=== PATIENT | female | born 1995 | race Two or more races ===

== ENCOUNTER 2017-06-03 17:49 | Emergency (ER) | payer MEDICAID ==
[2017-06-03] MEDS ORDERED: ONDANSETRON 4 MG TAB.RAPDIS PO ONE (19:42)
--- NOTE | 2017-06-03 19:44 | ER Document Report ---
ED Medical Screen (RME) - General Chief Complaint: Abdominal Pain Stated Complaint: ABDOMINAL PAIN Time Seen by Provider: 06/03/17 19:42 Notes: Patient is complaining of lower mid abdominal pain and general body aches, including the back and flank regions bilaterally. All of these symptoms have been going on for about 6 days. She has been nauseated but not vomiting, but not eating or drinking much to keep from vomiting. Had one episode of diarrhea. No UTI symptoms. No congestion or cough symptoms. [place] like she had a fever, but did not take her temperature. LMP 8/3, on control pills. No abdominal surgeries. On no regular prescription medications. TRAVEL OUTSIDE OF THE [place] IN LAST 30 DAYS: No - Related Data Allergies/Adverse Reactions: blueberries Adverse Reaction (Uncoded 06/03/17 17:57) Past Medical History - Social History Chew tobacco use (# tins/day): No Frequency of alcohol use: Rare Drug Abuse: None Renal/ Medical History: Denies: Hx Peritoneal Dialysis Past Surgical History: Reports: Hx Orthopedic Surgery - knee - Immunizations Immunizations up to date: Yes Hx Diphtheria, Pertussis, Tetanus Vaccination: Yes Physical Exam - Vital signs Vitals: Temp Pulse Resp BP Pulse Ox 98.4 F 115 H 16 120/90 H 97 06/03/17 17:54 06/03/17 17:54 06/03/17 17:54 06/03/17 17:54 06/03/17 17:54 Course - Vital Signs Vital signs: Temp Pulse Resp BP Pulse Ox 98.4 F 96 16 120/90 H 97 06/03/17 17:54 06/03/17 19:37 06/03/17 19:37 06/03/17 17:54 06/03/17 17:54
[2017-06-03 20:09] LABS: ABSOLUTE LYMPHOCYTES (AUTO) 0.9 10^3/uL (0.5-4.7); ABSOLUTE MONOCYTES (AUTO) 0.4 10^3/uL (0.1-1.4); ABSOLUTE NEUT (AUTO) 4.2 10^3/uL (1.7-8.2); BASOPHILS % (AUTO) 0.4 % (0-2); EOSINOPHILS % (AUTO) 0.1 % (0-6); HEMATOCRIT 44.7 % (36.0-47.0); HEMOGLOBIN 14.5 g/dL (12.0-15.5); HGB HCT DIFFERENCE -1.2; LYMPHOCYTES % (AUTO) 16.7 % (13-45); MEAN CORPUSCULAR HGB CONC 32.4 g/dL (32.0-36.0); MEAN CORPUSCULAR VOLUME 87 fl (80-97); RED BLOOD COUNT 5.17 10^6/uL (3.72-5.28); RED CELL DISTRIBUTION WIDTH 12.8 % (11.5-14.0); SEGMENTED NEUTROPHILS % (AUTO) 75.8 % (42-78); WHITE BLOOD COUNT 5.5 10^3/uL (4.0-10.5)
[2017-06-03 20:29] LABS: ALANINE AMINOTRANSFERASE 25 U/L (9-52); ALKALINE PHOSPHATASE 70 U/L (38-126); ANION GAP 13 (5-19); ASPARTATE AMINO TRANSFERASE 20 U/L (14-36); BILIRUBIN,DIRECT 0.4 mg/dL (0.0-0.4); BILIRUBIN,TOTAL 0.7 mg/dL (0.2-1.3); BLOOD UREA NITROGEN 9 mg/dL (7-20); CALCIUM 10.4 mg/dL (8.4-10.2); CARBON DIOXIDE 25 mmol/L (22-30); CHLORIDE 103 mmol/L (98-107); CREATININE RESULT 0.74 mg/dL (0.52-1.25); GLUCOSE 77 mg/dL (75-110); LIPASE 28.8 U/L (23-300); POTASSIUM 4.2 mmol/L (3.6-5.0); SODIUM 140.6 mmol/L (137-145); TOTAL PROTEIN 8.3 g/dL (6.3-8.2)
[2017-06-03 20:35] LABS: APPEARANCE,URINE CLOUDY; BILIRUBIN,URINE NEGATIVE (NEGATIVE); GLUCOSE, URINE NEGATIVE (NEGATIVE); KETONES,URINE 20 mg/dL (NEGATIVE); LEUKOCYTE ESTERASE,URINE SMALL (NEGATIVE); NITRITE,URINE NEGATIVE (NEGATIVE); PROTEIN,URINE NEGATIVE (NEGATIVE)
--- NOTE | 2017-06-03 22:15 | ER Document Report ---
ED GI/ - General Mode of Arrival: Ambulatory Information source: Patient TRAVEL OUTSIDE OF THE [place] IN LAST 30 DAYS: No <DIAMOND SPENCER - Last Filed: 06/03/17 23:53> <LUISA HOROWITZ - Last Filed: 06/04/17 05:29> - General Chief Complaint: Abdominal Pain Stated Complaint: ABDOMINAL PAIN Time Seen by Provider: 06/03/17 19:42 Notes: Patient is a 22-year-old female presented emergency department for abdominal pain and nausea. Patient states her pain was onset on Wednesday and has been waxing and waning since then. Patient states the pain is uncomfortable and sometimes shooting on the lower right side. Patient states her pain is sometimes exacerbated with walking. Patient states she has also had some nausea and lack of appetite along with one episode of diarrhea on Wednesday. Patient states she has a spell of general malaise and some general body aches. Patient denies any vomiting, dysuria, cough, congestion, chest pain or shortness of breath. Patient's last menstrual period was 06/16/2017. Patient states she has had a history of ovarian cysts and she is currently on control. PCP [facility] (DIAMOND SPENCER) - Related Data Allergies/Adverse Reactions: blueberries Adverse Reaction (Uncoded 06/03/17 17:57) Past Medical History - General Information source: Patient - Social History Smoking Status: Current Every Day Smoker Chew tobacco use (# tins/day): No Frequency of alcohol use: Rare Drug Abuse: None Family History: None Patient has suicidal ideation: No Patient has homicidal ideation: No Renal/ Medical History: Reports: Hx Ovarian Cysts Past Surgical History: Reports: Hx Orthopedic Surgery - knee - Immunizations Immunizations up to date: Yes Hx Diphtheria, Pertussis, Tetanus Vaccination: Yes <DIAMOND SPENCER - Last Filed: 06/03/17 23:53> Review of Systems - Review of Systems Constitutional: See HPI, Malaise EENT: No symptoms reported Cardiovascular: No symptoms reported Respiratory: No symptoms reported Gastrointestinal: See HPI, Abdominal pain, Nausea. denies: Vomiting Genitourinary: No symptoms reported Female Genitourinary: No symptoms reported Musculoskeletal: No symptoms reported Skin: No symptoms reported Hematologic/Lymphatic: No symptoms reported Neurological/Psychological: No symptoms reported -: Yes All other systems reviewed and negative <TJERICADIAMOND - Last Filed: 06/03/17 23:53> Physical Exam - Vital signs Interpretation: Tachycardic <DIAMOND SPENCER - Last Filed: 06/03/17 23:53> <LUISA HOROWITZ - Last Filed: 06/04/17 05:29> - Vital signs Vitals: Temp Pulse Resp BP Pulse Ox 98.4 F 115 H 16 120/90 H 97 06/03/17 17:54 06/03/17 17:54 06/03/17 17:54 06/03/17 17:54 06/03/17 17:54 - Notes Notes: GENERAL: Alert, interacts well. No acute distress. HEAD: Normocephalic, atraumatic. EYES: Appear normal. Pupils equal, round, and reactive to light. ENT: Moist mucus membranes, tongue midline. NECK: Full range of motion. Supple. Trachea midline. LUNGS: Clear to auscultation bilaterally, no wheezes, rales, or rhonchi. No respiratory distress. HEART: Regular rate and rhythm. No murmurs, gallops, or rubs. ABDOMEN: Soft, mild pelvic tenderness with palpation. Non-distended. Normal bowel sounds. EXTREMITIES: Moves all 4 extremities spontaneously. Normal strength. No edema. NEUROLOGICAL: Alert and oriented x3. Normal speech. No focal neurological deficits. GSC 15. PSYCH: Normal affect, normal mood. SKIN: Warm, dry, normal turgor. No rashes or lesions noted. (DIAMOND SPENCER) Course - Laboratory Result Diagrams: 06/03/17 19:56 06/03/17 19:56 <LANEDANISHADIAMOND - Last Filed: 06/03/17 23:53> - Laboratory Result Diagrams: 06/03/17 19:56 06/03/17 19:56 <LUISA HOROWITZ - Last Filed: 06/04/17 05:29> - Re-evaluation Re-evalutation: 06/03/17 Patient is a 22-year-old female who comes in complaining of some abdominal pain and nausea. Patient with right pelvic pain. She is not concerned about STDs. Patient has a history of ovarian cyst. No evidence for torsion at this time. Would work and urine within normal limits. Patient feels better after Zofran. She is instructed to follow-up with her doctor. Of note the patient has had recent sick contacts with similar symptoms. Patient is also around the time where she will be ovulating. Stable for discharge. Return if any worsening or concerning symptoms. Nonsurgical abdomen at this time. (LUISA HOROWITZ) - Vital Signs Vital signs: Temp Pulse Resp BP Pulse Ox 98.5 F 91 16 112/77 97 06/03/17 22:47 06/03/17 22:47 06/03/17 22:47 06/03/17 22:47 06/03/17 17:54 - Laboratory Laboratory results interpreted by me: 06/03/17 06/03/17 19:56 20:25 Calcium 10.4 H Total Protein 8.3 H Urine Ketones 20 H Urine Urobilinogen 2.0 H Ur Leukocyte Esterase SMALL H Discharge <DIAMOND SPENCER - Last Filed: 06/03/17 23:53> <LUISA HOROWITZ - Last Filed: 06/04/17 05:29> - Discharge Clinical Impression: Pelvic pain, Body aches Condition: Stable Disposition: HOME, SELF-CARE Instructions: Nausea or Vomiting, Nonspecific ([facility]), Pelvic Pain ([facility]) Forms: Return to Work Referrals: JIMMIE DE LA ROSA MD [Primary Care Provider] - Follow up as needed Scribe Attestation: 06/04/17 05:29 I personally performed the services described in the documentation, reviewed and edited the documentation which was dictated to the scribe in my presence, and it accurately records my words and actions. (LUISA HOROWITZ) Scribe Documentation - Scribe Written by Bethibeloisa:: Analisa Sahni 06/03/2017 23:59 acting as scribe for :: Odilon <DIAMOND SPENCER - Last Filed: 06/03/17 23:53>
[2017-06-03] MEDS ORDERED: ONDANSETRON ODT 4 MG TAB (6 TAB/DSPK) PO PRN (22:40)
[2017-06-03 22:52] VITALS: BP 112/77
== END 2017-06-03 22:52 | disposition home or self-care (01) ==
LOC: ER 17:49
DX: R10.2 Pelvic and perineal pain (principal); R11.0 Nausea; R63.0 Anorexia; R53.81 Other malaise; F17.200 Nicotine dependence, unspecified, uncomplicated; Z79.3 Long term (current) use of hormonal contraceptives; Z87.42 Personal history of other diseases of the female genital tract
CPT/HCPCS: 99284; 36415; 83690; 84703; 85025; 80053; 81001; S0119

== ENCOUNTER 2017-10-21 18:01 | Emergency (ER) | payer MEDICAID ==
--- NOTE | 2017-10-21 18:16 | ER Document Report ---
ED Medical Screen (RME) - General Chief Complaint: Vag Bleeding, +preg <12wks Stated Complaint: VAGINAL BLEEDING Time Seen by Provider: 10/21/17 18:13 TRAVEL OUTSIDE OF THE [place] IN LAST 30 DAYS: No - HPI Patient complains to provider of: Vaginal bleeding Notes: 10/21/17 18:31 Bleeding per vagina. Patient's last menstrual period was on September 17. Patient took a test about 3 days ago came back positive. Patient thinks she might be 3 or 4 weeks ., Had an episode of some vaginal bleeding today resolved spontaneously pain-free. Patient is - Related Data Allergies/Adverse Reactions: No Known Drug Allergies Allergy (Verified 10/21/17 18:02) blueberries Adverse Reaction (Uncoded 10/21/17 18:02) Home Medications: Current Home Medications No Home Medications 10/21/17 [History] Past Medical History Renal/ Medical History: Reports: Hx Ovarian Cysts. Denies: Hx Peritoneal Dialysis Past Surgical History: Reports: Hx Orthopedic Surgery - knee - Immunizations Immunizations up to date: Yes Hx Diphtheria, Pertussis, Tetanus Vaccination: Yes Review of Systems - Review of Systems Constitutional: No symptoms reported EENT: No symptoms reported Cardiovascular: No symptoms reported Respiratory: No symptoms reported Gastrointestinal: No symptoms reported Genitourinary: No symptoms reported Female Genitourinary: Vaginal bleeding Musculoskeletal: No symptoms reported Skin: No symptoms reported Hematologic/Lymphatic: No symptoms reported Neurological/Psychological: No symptoms reported Physical Exam - Vital signs Vitals: Temp Pulse Resp BP Pulse Ox 97.6 F 96 14 134/96 H 99 10/21/17 18:07 10/21/17 18:07 10/21/17 18:07 10/21/17 18:07 10/21/17 18:07 Interpretation: Normal - General General appearance: Appears well, Alert - HEENT Head: Normocephalic, Atraumatic Eyes: Normal Pupils: PERRL - Respiratory Respiratory status: No respiratory distress Chest status: Nontender Breath sounds: Normal Chest palpation: Normal - Cardiovascular Rhythm: Regular Heart sounds: Normal auscultation Murmur: No - Abdominal Inspection: Normal Distension: No distension Bowel sounds: Normal Tenderness: Nontender Organomegaly: No organomegaly - Back Back: Normal, Nontender - Extremities General upper extremity: Normal inspection, Nontender, Normal color, Normal ROM , Normal temperature General lower extremity: Normal inspection, Nontender, Normal color, Normal ROM , Normal temperature, Normal weight bearing. No: Phoebe's sign - Neurological Neuro grossly intact: Yes Cognition: Normal Orientation: AAOx4 Crista Coma Scale Eye Opening: Spontaneous Crista Coma Scale Verbal: Oriented [place] Coma Scale Motor: Obeys Commands [place] Coma Scale Total: 15 Speech: Normal Motor strength normal: LUE, RUE, LLE, RLE Sensory: Normal - Psychological Associated symptoms: Normal affect, Normal mood - Skin Skin Temperature: Warm Skin Moisture: Dry Skin Color: Normal Course - Re-evaluation Re-evalutation: 10/21/17 19:35 Pleasant young girl presents with minor vaginal bleeding. Beta quant below threshold for transvaginal ultrasound only approximately 800. Patient has no symptoms nor bleeding. Could be implantation bleeding, early presence of bleeding with threatened . Has lengthy conversation with female. We will follow-up with PCP and [facility]DER early next week return if anything changes - Vital Signs Vital signs: Temp Pulse Resp BP Pulse Ox 97.6 F 96 14 134/96 H 99 10/21/17 18:07 10/21/17 18:07 10/21/17 18:07 10/21/17 18:07 10/21/17 18:07 - Laboratory Laboratory results interpreted by me: 10/21/17 18:44 Beta HCG, Quant 833.61 H Doctor's Discharge - Discharge Clinical Impression: Threatened Condition: Stable Disposition: HOME, SELF-CARE Instructions: Bleeding During Early ([facility]) Additional Instructions: See your PCP next week and call your [facility]
[2017-10-21 19:38] VITALS: BP 125/90
== END 2017-10-21 19:39 | disposition home or self-care (01) ==
LOC: ER 18:01
DX: O20.0 Threatened abortion (principal); Z3A.01 Less than 8 weeks gestation of pregnancy
CPT/HCPCS: 36415; 84702; 99284

== ENCOUNTER 2017-10-22 17:55 | Emergency (ER) | payer MEDICAID ==
--- NOTE | 2017-10-22 20:06 | RADIOLOGY REPORT (SQ) ---
EXAM DESCRIPTION: U/S OB TRANSVAGINAL W/O DOP COMPLETED DATE/TIME: 10/22/2017 7:54 pm REASON FOR STUDY: preg vag bleed COMPARISON: None. TECHNIQUE: Transvaginal static and realtime grayscale images acquired of the pelvis. Additional emigdio cted spectral and color Doppler images recorded. All images stored on PACs. bHCG: Not available. LIMITATIONS: None. FINDINGS: UTERUS: No masses. No anomalies. GESTATIONAL SAC: Possible YOLK SAC: No POLE: No RIGHT ADNEXA: Normal ovary with normal vascular flow. No adnexal free fluid. No adnexal masses. LEFT ADNEXA: Normal ovary with normal vascular flow. No adnexal free fluid. 1.5 cm complicated cysts. FREE FLUID: None. OTHER: No other significant finding. IMPRESSION: POSSIBLE EARLY INTRAUTERINE . BHCG LEVEL NOT AVAILABLE FOR CORRELATION WITH US FINDINGS. CONSIDER F/U BHCG AND/OR ULTRASOUND FOR VERIFICATION AND TO EXCLUDE ECTOPIC . Trimester of : First - 0 to 13 weeks. TECHNICAL DOCUMENTATION: JOB ID: [id number] [facility]- All Rights Reserved
[2017-10-22 20:46] VITALS: BP 143/96
--- NOTE | 2017-10-22 20:49 | ER Document Report ---
ED General - General Chief Complaint: Vag Bleeding, +preg <12wks Stated Complaint: VAGINAL BLEEDING Time Seen by Provider: 10/22/17 19:03 Mode of Arrival: Ambulatory Information source: Patient, Dr. Office Notes: 22-year-old female presents with complaints of vaginal bleeding. Patient is a 2 para 1 whose a few weeks blood type is O+. Patient notes she was seen here yesterday but she was having some vaginal spotting blood work was performed. Patient notes the spotting has worsened TRAVEL OUTSIDE OF THE [place] IN LAST 30 DAYS: No - HPI Onset: Yesterday Onset/Duration: Persistent, Better Quality of pain: Cramping - Cramping is improved Severity: Mild Pain Level: 1 Associated symptoms: Other Exacerbated by: Denies Relieved by: Denies Similar symptoms previously: Yes Recently seen / treated by doctor: Yes - Related Data Allergies/Adverse Reactions: No Known Drug Allergies Allergy (Verified 10/21/17 18:02) blueberries Adverse Reaction (Uncoded 10/22/17 17:57) Past Medical History - Social History Smoking Status: Never Smoker Cigarette use (# per day): No Chew tobacco use (# tins/day): No Smoking Education Provided: No Family History: None Patient has suicidal ideation: No Patient has homicidal ideation: No Renal/ Medical History: Reports: Hx Ovarian Cysts. Denies: Hx Peritoneal Dialysis Past Surgical History: Reports: Hx Orthopedic Surgery - knee - Immunizations Immunizations up to date: Yes Hx Diphtheria, Pertussis, Tetanus Vaccination: Yes Review of Systems - Review of Systems Notes: REVIEW OF SYSTEMS: CONSTITUTIONAL : Denies fever, chills, or sweats. Denies recent illness. EENT: Denies eye, ear, throat, or mouth pain or symptoms. Denies nasal or sinus congestion or discharge. Denies throat, tongue, or mouth swelling or difficulty swallowing. CARDIOVASCULAR: Denies chest pain. Denies palpitations or racing or irregular heart beat. Denies ankle edema. RESPIRATORY: Denies cough, cold, or chest congestion. Denies shortness of breath, difficulty breathing, or wheezing. GASTROINTESTINAL: Denies abdominal pain or distention. Denies nausea, vomiting , or diarrhea. Denies blood in vomitus, stools, or per rectum. Denies black, tarry stools. Denies constipation. GENITOURINARY: Denies difficulty urinating, painful urination, burning, frequency, blood in urine, or discharge. FEMALE GENITOURINARY: Admits to vaginal bleeding MUSCULOSKELETAL: Denies back or neck pain or stiffness. Denies joint pain or swelling. SKIN: Denies rash, lesions or sores. HEMATOLOGIC : Denies easy bruising or bleeding. LYMPHATIC: Denies swollen, enlarged glands. NEUROLOGICAL: Denies confusion or altered mental status. Denies passing out or loss of consciousness. Denies dizziness or lightheadedness. Denies headache. Denies weakness or paralysis or loss of use of either side. Denies problems with gait or speech. Denies sensory loss, numbness, or tingling. Denies seizures. PSYCHIATRIC: Denies anxiety or stress. Denies depression, suicidal ideation, or homicidal ideation. ALL OTHER SYSTEMS REVIEWED AND NEGATIVE. PHYSICAL EXAMINATION: GENERAL: Well-appearing, well-nourished and in no acute distress. HEAD: Atraumatic, normocephalic. EYES: Pupils equal round and reactive to light, extraocular movements intact, conjunctiva are normal. ENT: Nares patent, oropharynx clear without exudates. Moist mucous membranes. NECK: Normal range of motion, supple without lymphadenopathy LUNGS: Breath sounds clear to auscultation bilaterally and equal. No wheezes rales or rhonchi. HEART: Regular rate and rhythm without murmurs ABDOMEN: Soft, nontender, nondistended abdomen. No guarding, no rebound. No masses appreciated. Female : deferred Musculoskeletal: Normal range of motion, no pitting or edema. No cyanosis. NEUROLOGICAL: Cranial nerves grossly intact. Normal speech, normal gait. Normal sensory, motor exams PSYCH: Normal mood, normal affect. SKIN: Warm, Dry, normal turgor, no rashes or lesions noted. Dictation was performed using [employer] voice recognition software Physical Exam - Vital signs Vitals: Temp Pulse Resp BP Pulse Ox 98.3 F 97 18 128/87 H 100 10/22/17 18:10 10/22/17 18:10 10/22/17 18:10 10/22/17 18:10 10/22/17 18:10 Course - Re-evaluation Re-evalutation: 10/22/17 21:21 Patient's hCG quant has gone up from 800-900 in 1 day, I do not believe this is appropriate elevation and I believe the patient is having a miscarriage. Given the patient's cramping is improved by her spotting it worsens I believe she may have already miscarried, ultrasound was performed in no IUP was noted as it is too early in . I will have the patient return again tomorrow for an hCG repeat but have explained that this is a probable miscarriage Very strict return precautions have also been provided After performing a Medical Screening Examination, I estimate there is LOW risk for ACUTE APPENDICITIS, BOWEL OBSTRUCTION, ACUTE CHOLECYSTITIS, PERFORATED DIVERTICULITIS, INCARCERATED HERNIA, PANCREATITIS, PELVIC INFLAMMATORY DISEASE, PERFORATED ULCER, ECTOPIC , or TUBO-OVARIAN ABSCESS, thus I consider the discharge disposition reasonable. Also, there is no evidence or peritonitis , sepsis, or toxicity. I have reevaluated this patient multiple times and no significant life threatening changes are noted. The patient and I have discussed the diagnosis and risks, and we agree with discharging home with close follow-up with the understanding that symptoms and presentations can change. We also discussed returning to the Emergency Department immediately if new or worsening symptoms occur. We have discussed the symptoms which are most concerning (e.g., bloody stool, fever, changing or worsening pain, vomiting) that necessitate immediate return. - Vital Signs Vital signs: Temp Pulse Resp BP Pulse Ox 98.8 F 102 H 16 143/96 H 98 10/22/17 20:45 10/22/17 20:45 10/22/17 20:45 10/22/17 20:45 10/22/17 20:45 - Laboratory Laboratory results interpreted by me: 10/22/17 10/22/17 18:45 20:38 Beta HCG, Quant 957.40 H Urine Blood LARGE H - Diagnostic Test Radiology reviewed: Image reviewed, Reports reviewed - No IUP noted Discharge - Discharge Clinical Impression: Threatened miscarriage in early Condition: Stable Disposition: HOME, SELF-CARE Instructions: Repeat Blood Test ([facility]), Threatened Miscarriage ([facility]) Additional Instructions: Follow-up tomorrow for repeat of your blood work Forms: Follow-Up Laboratory Testing
[2017-10-22 20:58] LABS: APPEARANCE,URINE CLEAR; BILIRUBIN,URINE NEGATIVE (NEGATIVE); COLOR,URINE YELLOW; GLUCOSE, URINE NEGATIVE (NEGATIVE); KETONES,URINE NEGATIVE (NEGATIVE); LEUKOCYTE ESTERASE,URINE NEGATIVE (NEGATIVE); NITRITE,URINE NEGATIVE (NEGATIVE); PROTEIN,URINE NEGATIVE (NEGATIVE); UROBILINOGEN,URINE NEGATIVE mg/dL (<2.0)
== END 2017-10-22 20:56 | disposition home or self-care (01) ==
LOC: ER 17:55
DX: O20.0 Threatened abortion (principal)
CPT/HCPCS: 36415; 76817; 81001; 84702; 86900; 86901; 99284

== ENCOUNTER → 2017-10-23 | Outpatient (CLI) | payer MEDICAID | LOC: LAB 14:58 | PROVIDERS: ATTEND Emergency Medicine | DX: N93.9 Abnormal uterine and vaginal bleeding, unspecified (principal); Z32.00 Encounter for pregnancy test, result unknown | CPT/HCPCS: 36415; 84702 ==

== ENCOUNTER 2017-10-25 12:07 | Day surgery (SDC) | payer MEDICAID ==
[~2017-10-25 12:07] MED LIST: DEXAMETHASONE SOD PHOSPHATE INJ 4 MG/1 ML VIAL ONE; KETOROLAC TROMETHAMINE 60 MG/2 ML SDV ONE; LIDOCAINE 2% INJ-PF (20 MG/ML) 2 ML AMPUL ONE; METOCLOPRAMIDE HCL INJ/PF 10 MG/2 ML SDV ONE; ONDANSETRON HCL INJ/PF 4 MG/2 ML SDV ONE
[2017-10-25 12:52] LABS: HEMATOCRIT 37.8 % (36.0-47.0); HEMOGLOBIN 12.1 g/dL (12.0-15.5); MEAN CORPUSCULAR HEMOGLOBIN 28.2 pg (27.0-33.4); MEAN CORPUSCULAR HGB CONC 32.1 g/dL (32.0-36.0); MEAN CORPUSCULAR VOLUME 88 fl (80-97); PLATELET COUNT 240 10^3/uL (150-450); WHITE BLOOD COUNT 4.7 10^3/uL (4.0-10.5)
[2017-10-25] MEDS ORDERED: KETAMINE HCL INJ 500 MG/10 ML VIAL ONE (13:47)
[2017-10-25] MEDS ORDERED: FENTANYL CITRATE INJ/PF 100 MCG/2 ML AMPUL ONE (13:48)
[2017-10-25] MEDS ORDERED: MIDAZOLAM 2 MG/2 ML INJ ONE (13:48)
[2017-10-25] MEDS ORDERED: ACETAMINOPHEN 100 ML IV ONE (13:48)
[2017-10-25] MEDS ORDERED: PROPOFOL INJ 200 MG/20 ML VIAL IV ONE (13:48)
[2017-10-25] MEDS ORDERED: OXYCODONE-ACETAMINOPHEN 5-325 MG TABLET PO PRN (14:53)
[2017-10-25] MEDS ORDERED: ONDANSETRON 4 MG TAB.RAPDIS PO PRN (14:53)
[2017-10-25] MEDS ORDERED: HYDROMORPHONE HCL INJ/PF 2 MG/ML AMPULE IM PRN (14:54)
--- NOTE | 2017-10-25 15:13 | OPERATIVE REPORT E ---
Operative Report NAME: REED WILKINSON : 1995 AGE: 22Y DATE OF SURGERY: ROOM: PREOPERATIVE DIAGNOSIS: Vaginal bleeding with missed AB. POSTOPERATIVE DIAGNOSIS: Vaginal bleeding with missed AB. OPERATION: Suction D and C. SURGEON: Wei CORRALES M.D. ESTIMATED BLOOD LOSS: Less than 10 cc. ANESTHESIA: Sedation. TISSUE REMOVED OR ALTERED: Endometrium, possible products of conception. PROCEDURE: Patient was placed in a dorsal lithotomy position, prepped and draped in a normal sterile fashion. A speculum was placed, cervix visualized and grasped with a single tooth tenaculum. Uterus sounded to a depth of 11 cm. It easily admitted a #8 suction catheter without dilation. Suction and curettage was performed followed by sharp curettage followed by repeat suctioning with scant amount of tissue being recovered. The single tooth tenaculum was removed and hemostasis was noted. The patient was taken to recovery in good condition. DICTATING PHYSICIAN: Wei CORRALES M.D. [id number] PHY#: [id number] ID: [id number] JOB#: [id number] ACCT: [id number] cc:Wei CORRALES M.D. >
[2017-10-25] MEDS ORDERED: FENTANYL CITRATE INJ/PF 100 MCG/2 ML AMPUL IV PRN ×3 (15:16)
[2017-10-25] MEDS ORDERED: DIPHENHYDRAMINE HCL 50 MG/ML VIAL IV PRN (15:16)
[2017-10-25 16:55] VITALS: BP 126/87
[2017-10-25] MEDS ORDERED: IBUPROFEN 800 MG TABLET PO SCH (18:00)
== END 2017-10-25 16:45 | disposition home or self-care (01) ==
LOC: OROUT 12:07
PROVIDERS: ATTEND Obstetrics & Gynecology Gynecology
PROC: 10D17ZZ Extraction of Products of Conception, Retained, Via Natural or Artificial Opening (ICD-10-PCS; principal; 2017-10-25 13:00)
DX: O02.1 Missed abortion (principal); O08.1 Delayed or excessive hemorrhage following ectopic and molar pregnancy; E03.9 Hypothyroidism, unspecified
CPT/HCPCS: 59820; 86900; 86901; 36415; 86850; 84702; 85027; 88305 ×2; J2250; J1100; J1885; J3010; J3490 ×2; J2765; J2405; J2704; J0131; 1965

== ENCOUNTER → 2017-10-28 | Outpatient (CLI) | payer MEDICAID ==
[2017-10-28 10:24] LABS: ABSOLUTE BASOPHILS # (AUTO) 0.1 10^3/uL (0.0-0.2); ABSOLUTE EOSINOPHILS # (AUTO) 0.2 10^3/uL (0.0-0.6); ABSOLUTE LYMPHOCYTES (AUTO) 2.2 10^3/uL (0.5-4.7); ABSOLUTE MONOCYTES (AUTO) 0.4 10^3/uL (0.1-1.4); ABSOLUTE NEUT (AUTO) 2.6 10^3/uL (1.7-8.2); BASOPHILS % (AUTO) 1.3 % (0-2); EOSINOPHILS % (AUTO) 2.9 % (0-6); HEMATOCRIT 39.1 % (36.0-47.0); HEMOGLOBIN 12.7 g/dL (12.0-15.5); LYMPHOCYTES % (AUTO) 40.4 % (13-45); MEAN CORPUSCULAR HEMOGLOBIN 28.4 pg (27.0-33.4); MEAN CORPUSCULAR HGB CONC 32.5 g/dL (32.0-36.0); MEAN CORPUSCULAR VOLUME 87 fl (80-97); MONOCYTES % (AUTO) 7.7 % (3-13); PLATELET COUNT 266 10^3/uL (150-450); RED BLOOD COUNT 4.48 10^6/uL (3.72-5.28); RED CELL DISTRIBUTION WIDTH 12.6 % (11.5-14.0); SEGMENTED NEUTROPHILS % (AUTO) 47.7 % (42-78); TOTAL CELLS COUNTED % (AUTO) 100 %; WHITE BLOOD COUNT 5.5 10^3/uL (4.0-10.5)
[2017-10-28 10:45] LABS: ALANINE AMINOTRANSFERASE 29 U/L (9-52); ALBUMIN 4.7 g/dL (3.5-5.0); ALKALINE PHOSPHATASE 51 U/L (38-126); ANION GAP 9 (5-19); ASPARTATE AMINO TRANSFERASE 18 U/L (14-36); BILIRUBIN,DIRECT 0.1 mg/dL (0.0-0.4); BILIRUBIN,TOTAL 0.4 mg/dL (0.2-1.3); BLOOD UREA NITROGEN 9 mg/dL (7-20); CALCIUM 10.4 mg/dL (8.4-10.2); CARBON DIOXIDE 27 mmol/L (22-30); CHLORIDE 106 mmol/L (98-107); GLUCOSE 83 mg/dL (75-110); POTASSIUM 4.2 mmol/L (3.6-5.0); SODIUM 142.3 mmol/L (137-145); TOTAL PROTEIN 7.1 g/dL (6.3-8.2)
== END ==
LOC: OD 10:04
PROVIDERS: ATTEND Obstetrics & Gynecology
DX: O03.9 Complete or unspecified spontaneous abortion without complication (principal)
CPT/HCPCS: 36415; 80053; 84443; 84702; 85025

== ENCOUNTER 2018-01-25 23:27 | Emergency (ER) | payer MEDICAID ==
--- NOTE | 2018-01-26 01:04 | ER Document Report ---
HPI - HPI Pain Level: 2 Context: Runny nose and then she had a enlarged patch on her left flank that was itchy. States that that started to go away and she had a rash breakout on her trunk. States she has been taking Benadryl at home for it. Otherwise denies any weakness, headache, dizziness, vision changes, nausea, vomiting, abdominal pain , back pain or flank pain. Not on any home medications. - REPRODUCTIVE Reproductive: DENIES: : Past Medical History - Social History Smoking Status: Never Smoker Family History: None - Past Medical History Cardiac Medical History: Denies: Hx Coronary Artery Disease, Hx Heart Attack, Hx Hypertension Pulmonary Medical History: Denies: Hx Asthma, Hx Bronchitis, Hx COPD, Hx Pneumonia Neurological Medical History: Denies: Hx Cerebrovascular Accident, Hx Seizures Renal/ Medical History: Reports: Hx Ovarian Cysts. Denies: Hx Peritoneal Dialysis Musculoskeltal Medical History: Denies Hx Arthritis Past Surgical History: Reports: Hx Orthopedic Surgery - knee - Immunizations Immunizations up to date: Yes Hx Diphtheria, Pertussis, Tetanus Vaccination: Yes Vertical Provider Document - CONSTITUTIONAL Agree With Documented VS: Yes Notes: PHYSICAL EXAM GENERAL: Alert, interacts well. HEAD: Normocephalic, atraumatic. EYES: Pupils equal, round, and reactive to light. Extraocular movements intact. ENT: Oral mucosa moist, tongue midline. NECK: Full range of motion. Supple. Trachea midline. LUNGS: Clear to auscultation bilaterally, no wheezes, rales, or rhonchi. No respiratory distress. HEART: Regular rate and rhythm. No murmurs, gallops, or rubs. ABDOMEN: Soft, nondistended, nontender. No guarding, rebound, or rigidity.. Bowel sounds present in all 4 quadrants. EXTREMITIES: Moves all 4 extremities spontaneously. No edema, radial and dorsalis pedis pulses 2/4 bilaterally. No cyanosis. NEUROLOGICAL: Alert and oriented x4. Normal speech. PSYCH: Normal affect, normal mood. SKIN: Warm, dry, normal turgor. Maculopapular rash on the patient's trunk with an enlarged area on the left flank - INFECTION CONTROL TRAVEL OUTSIDE OF THE [place] IN LAST 30 DAYS: No Course - Re-evaluation Re-evalutation: 01/26/18 01:02 Patient is a 22-year-old female's presentation is consistent with pityriasis rosacea. Presentation of an overall very well-appearing female in no acute distress, vitals within normal limits with a rash most consistent with a viral exanthem. Rash is not consistent with acute urticaria, drug reaction, meningitis, [place] spotted fever, and clinical history does support this being an uncomplicated viral exanthem. No indication for further laboratories or imaging studies. At this time will discharge with return precautions and follow-up recommendations. Verbal discharge instructions given a the bedside and opportunity for questions given. Medication warnings reviewed. Patient is in agreement with this plan and has verbalized understanding of return precautions and the need for primary care follow-up in the next 24-72 hours. - Vital Signs Vital signs: Temp Pulse Resp BP Pulse Ox 97.9 F 81 16 144/85 H 100 01/25/18 23:46 01/25/18 23:46 01/25/18 23:46 01/25/18 23:46 01/25/18 23:46 Discharge - Discharge Clinical Impression: Pityriasis rosea Condition: Good Disposition: HOME, SELF-CARE Instructions: Pityriasis Rosea ([facility]) Prescriptions: Hydrocortisone/Oatmeal/Aloe/E [Hydrocortisone 1% Cream] 28.4 gm TP BID #1 cream.gm. Referrals: JESSE PENNY DO [ACTIVE STAFF] - Follow up in 1 month
[2018-01-26 01:21] VITALS: BP 135/72
== END 2018-01-26 01:21 | disposition home or self-care (01) ==
LOC: ER 23:27
DX: L42 Pityriasis rosea (principal); L29.9 Pruritus, unspecified; R10.9 Unspecified abdominal pain
CPT/HCPCS: 99282

== ENCOUNTER 2018-03-30 15:37 | Emergency (ER) | payer MEDICAID ==
[2018-03-30 15:58] VITALS: BP 114/66
[2018-03-30] MEDS ORDERED: ACETAMINOPHEN 325 MG TABLET PO ONE (16:24)
[2018-03-30] MEDS ORDERED: ONDANSETRON 4 MG TAB.RAPDIS PO ONE (16:24)
[2018-03-30] MEDS ORDERED: METOCLOPRAMIDE HCL 10 MG TABLET PO ONE (17:02)
--- NOTE | 2018-03-30 17:48 | ER Document Report ---
HPI - HPI Pain Level: 5 Context: Patient is a 23-year-old female who presents emergency department with a chief complaint of head injury. Patient states that she was going to sit down on her couch when she sat down she hit her head off the back of the wall. She denies any LOC. She admits to headache at the back of her head with mild nausea. She otherwise denies any vision changes, confusion, dizziness. Otherwise healthy female - NEURO Neurology: REPORTS: Headache - REPRODUCTIVE Reproductive: DENIES: : Past Medical History - Social History Smoking Status: Unknown if Ever Smoked Family History: None Patient has suicidal ideation: No Patient has homicidal ideation: No - Past Medical History Cardiac Medical History: Denies: Hx Coronary Artery Disease, Hx Heart Attack, Hx Hypertension Pulmonary Medical History: Denies: Hx Asthma, Hx Bronchitis, Hx COPD, Hx Pneumonia Neurological Medical History: Denies: Hx Cerebrovascular Accident, Hx Seizures Renal/ Medical History: Reports: Hx Ovarian Cysts. Denies: Hx Peritoneal Dialysis Musculoskeltal Medical History: Denies Hx Arthritis Past Surgical History: Reports: Hx Orthopedic Surgery - knee - Immunizations Immunizations up to date: Yes Hx Diphtheria, Pertussis, Tetanus Vaccination: Yes Vertical Provider Document - CONSTITUTIONAL Agree With Documented VS: Yes Notes: PHYSICAL EXAMINATION: GENERAL: Well-appearing, no acute distress. GCS 15 HEAD: Atraumatic, normocephalic. EYES: Pupils equal round and reactive to light, extraocular movements intact, sclera anicteric, conjunctiva are normal. ENT: nares patent, no oral pharyngeal trauma. No hemotympanum, no Miner's sign , no raccoon eyes. NECK: No midline cervical spine tenderness. Patient able to move their head to 45 bilaterally without any discomfort. EXTREMITIES: Normal range of motion, no pitting or edema. No long bone deformities. BACK: No midline spinal tenderness, step-offs, or deformities. NEUROLOGICAL: Face symmetric. Tongue protrudes midline. Extraocular motions intact. Pupils are 2 mm and equally reactive. Normal speech, normal gait. 5 out of 5 strength in both the distal and proximal upper and lower extremities bilaterally. Sensation is grossly intact throughout. PSYCH: Normal mood, normal affect. SKIN: Warm, Dry, normal turgor, no rashes or lesions noted. - INFECTION CONTROL TRAVEL OUTSIDE OF THE [place] IN LAST 30 DAYS: No Course - Re-evaluation Re-evalutation: Presentation of head trauma in an otherwise well-appearing patient. No focal neurologic deficits on exam, no evidence of basilar skull fracture on exam without evidence of hemotympanum, raccoon eyes, or periauricular hematoma. No papilledema. Patient is not on anticoagulation. GCS is 15. No loss of consciousness. No episodes of vomiting. Patient is therefore negative via [place] head CT criteria and CT imaging will not be obtained at this time. - Vital Signs Vital signs: Temp Pulse Resp BP Pulse Ox 98.0 F 80 18 114/66 98 03/30/18 15:56 03/30/18 15:56 03/30/18 15:56 03/30/18 15:56 03/30/18 15:56 Discharge - Discharge Clinical Impression: Closed head injury Qualifiers: Encounter type: initial encounter Qualified Code(s): S09.90XA - Unspecified injury of head, initial encounter Condition: Good Disposition: HOME, SELF-CARE Additional Instructions: You have likely sustained a contusion (bruise) to your head. Symptoms to expect from a concussion include nausea, mild to moderate headache, difficulty concentrating or sleeping, and mild lightheadedness. These symptoms should improve over the next few days to weeks. Return to the emergency department or follow-up with your primary care doctor if your symptoms are not improving over this time. Signs of a more serious head injury include vomiting, severe headache, excessive sleepiness or confusion, and weakness or numbness in your face, arms or legs. Return immediately to the Emergency Department if you experience any of these more concerning symptoms. Rest, avoid strenuous physical or mental activity, and avoid activities that could potentially result in another head injury until all your symptoms from this head injury are completely resolved for at least 2-3 weeks. If you participate in sports, get cleared by your doctor or agency trainer before returning to play. You may take ibuprofen or acetaminophen over the counter according to label instructions for mild headache or scalp soreness. Prescriptions: Metoclopramide HCl [Reglan 10 mg Tablet] 1 - 2 tab PO ASDIR PRN #25 tablet PRN Reason:
== END 2018-03-30 17:52 | disposition home or self-care (01) ==
LOC: ER 15:37
DX: S09.90XA Unspecified injury of head, initial encounter (principal); R51 Headache; W22.01XA Walked into wall, initial encounter; Y93.89 Activity, other specified; R11.0 Nausea
CPT/HCPCS: 99283; J3490 ×2

== ENCOUNTER 2018-07-15 21:39 | Emergency (ER) | payer MEDICAID ==
--- NOTE | 2018-07-15 23:49 | ER Document Report ---
HPI - HPI Patient complains to provider of: Foot injury Onset: Other - 3 days ago Onset/Duration: Persistent Quality of pain: Achy Pain Level: 4 Context: Patient states she was moving a TV stand fell on her foot. Patient with tenderness to the left second and first toes with overlying ecchymosis Associated Symptoms: Other - Foot injury Exacerbated by: Standing, Movement, Walking Relieved by: Denies Similar symptoms previously: No Recently seen / treated by doctor: No - ROS ROS below otherwise negative: Yes Systems Reviewed and Negative: Yes All other systems reviewed and negative - NEURO Neurology: DENIES: Weakness - REPRODUCTIVE Reproductive: DENIES: : - MUSCULOSKELETAL Musculoskeletal: REPORTS: Extremity pain, Swelling - DERM Skin Color: Ecchymosis Past Medical History - General Information source: Patient - Social History Smoking Status: Current Every Day Smoker Smoking Education Provided: Yes Frequency of alcohol use: Occasional Drug Abuse: None Occupation: None Lives with: Family Family History: None - Medical History Medical History: Negative - Past Medical History Cardiac Medical History: Denies: Hx Coronary Artery Disease, Hx Heart Attack, Hx Hypertension Pulmonary Medical History: Denies: Hx Asthma, Hx Bronchitis, Hx COPD, Hx Pneumonia Neurological Medical History: Denies: Hx Cerebrovascular Accident, Hx Seizures Renal/ Medical History: Reports: Hx Ovarian Cysts. Denies: Hx Peritoneal Dialysis Musculoskeletal Medical History: Denies Hx Arthritis Past Surgical History: Reports: Hx Orthopedic Surgery - knee - Immunizations Immunizations up to date: Yes Hx Diphtheria, Pertussis, Tetanus Vaccination: Yes Vertical Provider Document - CONSTITUTIONAL Agree With Documented VS: Yes Exam Limitations: No Limitations General Appearance: WD/WN, No Apparent Distress - INFECTION CONTROL TRAVEL OUTSIDE OF THE [place] IN LAST 30 DAYS: No - HEENT HEENT: Atraumatic, Normocephalic - NECK Neck: Normal Inspection - RESPIRATORY Respiratory: No Respiratory Distress - CARDIOVASCULAR Pulses: Normal: Dorsalis pedis - MUSCULOSKELETAL/EXTREMETIES Musculoskeletal/Extremeties: MAEW, Tender - Tenderness to the base of left first and second toes with overlying ecchymosis, Eccymosis - NEURO Level of Consciousness: Awake, Alert, Appropriate Motor/Sensory: No Motor Deficit - DERM Integumentary: Warm, Dry Course - Vital Signs Vital signs: Temp Pulse Resp BP Pulse Ox 97.8 F 82 18 136/72 H 100 07/15/18 22:08 07/15/18 22:08 07/15/18 22:08 07/15/18 22:08 07/15/18 22:08 - Diagnostic Test Radiology reviewed: Image reviewed, Reports reviewed Procedures - Immobilization Left Foot Pre-Proc Neuro Vasc Exam: Normal Immobilizer type: Post-op shoe Performed by: PCT Post-Proc Neuro Vasc Exam: Normal Alignment checked and good: Yes Discharge - Discharge Clinical Impression: Foot sprain Qualifiers: Encounter type: initial encounter Laterality: left Qualified Code(s): S93.602A - Unspecified sprain of left foot, initial encounter Contusion, toes Qualifiers: Encounter type: initial encounter Toe: unspecified toe Damage to nail status: without damage Qualified Code(s): S90.129A - Contusion of unspecified lesser toe (s) without damage to nail, initial encounter Condition: Stable Disposition: HOME, SELF-CARE Instructions: Acetaminophen, Contusion ([facility]), Post-Op Shoe ([facility]), Sprain ([facility]) Additional Instructions: Return immediately for any new or worsening symptoms Followup with your primary care provider, call tomorrow to make a followup appointment Follow-up with orthopedics for any persistent pain or problems Referrals: [facility] [Provider Group] - Follow up as needed
--- NOTE | 2018-07-16 00:40 | RADIOLOGY REPORT (SQ) ---
3 VIEWS OF THE LEFT FOOT HISTORY: Trauma to first and second toes. COMPARISON: None. FINDINGS/IMPRESSION: Normal bone mineralization. No acute fracture or malalignment. Joint spaces are preserved. Surrounding soft tissues are swollen.
[2018-07-16 01:45] VITALS: BP 126/67
== END 2018-07-16 01:45 | disposition home or self-care (01) ==
LOC: ER 21:39
DX: S93.602A Unspecified sprain of left foot, initial encounter (principal); S90.129A Contusion of unspecified lesser toe(s) without damage to nail, initial encounter; W20.8XXA Other cause of strike by thrown, projected or falling object, initial encounter; F17.200 Nicotine dependence, unspecified, uncomplicated
CPT/HCPCS: 99283

== ENCOUNTER 2018-08-04 01:39 | Emergency (ER) | payer MEDICAID ==
[2018-08-04] MEDS ORDERED: MORPHINE SULFATE 10 MG/ML INJ IV ONE (02:01)
[2018-08-04] MEDS ORDERED: NORMAL SALINE 1000 ML 1,000 ML IV ONE (02:01)
--- NOTE | 2018-08-04 02:19 | ER Document Report ---
ED GI/ - General Chief Complaint: Abdominal Pain Stated Complaint: ABDOMINAL PAIN Time Seen by Provider: 08/04/18 01:49 Mode of Arrival: Ambulatory Information source: Patient TRAVEL OUTSIDE OF THE [place] IN LAST 30 DAYS: No - HPI Patient complains to provider of: Abdominal pain, Pelvic pain Onset: Just prior to arrival Timing/Duration: Sudden Quality of pain: Sharp, Stabbing Severity at maximum: Moderate Severity in ED: Moderate Pain Level: 4 Location: LLQ, RLQ, Suprapubic Vaginal bleeding (Compared to normal period): None Sexual history: Active Associated symptoms: Nausea Exacerbated by: Movement Relieved by: Denies Similar symptoms previously: No Recently seen / treated by doctor: No Notes: 08/04/18 02:18 Patient is a 23-year-old female presenting to the emergency room complaining of lower abdominal pain that is sharp and stabbing in nature and started after having sexual intercourse this evening, she denies any vomiting no diarrhea, no symptoms prior to intercourse, she denies dysuria or hematuria, no vaginal discharge or bleeding, she has a history of ovarian cysts in the past - Related Data Allergies/Adverse Reactions: No Known Drug Allergies Allergy (Verified 08/04/18 02:12) blueberries Adverse Reaction (Uncoded 08/04/18 02:12) Past Medical History - General Information source: Patient - Social History Smoking Status: Never Smoker Family History: None - Past Medical History Cardiac Medical History: Denies: Hx Coronary Artery Disease, Hx Heart Attack, Hx Hypertension Pulmonary Medical History: Denies: Hx Asthma, Hx Bronchitis, Hx COPD, Hx Pneumonia Neurological Medical History: Denies: Hx Cerebrovascular Accident, Hx Seizures Renal/ Medical History: Reports: Hx Ovarian Cysts. Denies: Hx Peritoneal Dialysis Musculoskeletal Medical History: Denies Hx Arthritis Past Surgical History: Reports: Hx Orthopedic Surgery - knee - Immunizations Immunizations up to date: Yes Hx Diphtheria, Pertussis, Tetanus Vaccination: Yes Review of Systems - Review of Systems Constitutional: No symptoms reported EENT: No symptoms reported Cardiovascular: No symptoms reported Respiratory: No symptoms reported Gastrointestinal: See HPI Genitourinary: See HPI Female Genitourinary: No symptoms reported Musculoskeletal: No symptoms reported Skin: No symptoms reported Hematologic/Lymphatic: No symptoms reported Neurological/Psychological: No symptoms reported -: Yes All other systems reviewed and negative Physical Exam - Vital signs Vitals: Temp Pulse Resp BP Pulse Ox 98.6 F 98 16 131/93 H 100 08/04/18 01:43 08/04/18 01:43 08/04/18 01:43 08/04/18 01:43 08/04/18 01:43 Interpretation: Normal - General General appearance: Appears well, Alert - HEENT Head: Normocephalic, Atraumatic Eyes: Normal Pupils: PERRL - Respiratory Respiratory status: No respiratory distress Chest status: Nontender Breath sounds: Normal Chest palpation: Normal - Cardiovascular Rhythm: Regular Heart sounds: Normal auscultation Murmur: No - Abdominal Inspection: Normal Distension: No distension Bowel sounds: Normal Tenderness: Tender - Across lower abdomen Organomegaly: No organomegaly - Back Back: Normal, Nontender - Extremities General upper extremity: Normal inspection, Nontender, Normal color, Normal ROM , Normal temperature General lower extremity: Normal inspection, Nontender, Normal color, Normal ROM , Normal temperature, Normal weight bearing. No: Phoebe's sign - Neurological Neuro grossly intact: Yes Cognition: Normal Orientation: AAOx4 [place] Coma Scale Eye Opening: Spontaneous [place] Coma Scale Verbal: Oriented Crista Coma Scale Motor: Obeys Commands [place] Coma Scale Total: 15 Speech: Normal Motor strength normal: LUE, RUE, LLE, RLE Sensory: Normal - Psychological Associated symptoms: Normal affect, Normal mood - Skin Skin Temperature: Warm Skin Moisture: Dry Skin Color: Normal Course - Vital Signs Vital signs: Temp Pulse Resp BP Pulse Ox 98.6 F 98 16 131/93 H 100 08/04/18 01:43 08/04/18 01:43 08/04/18 01:43 08/04/18 01:43 08/04/18 03:17 - Laboratory Result Diagrams: 08/04/18 02:16 08/04/18 02:16 Discharge - Discharge Clinical Impression: Dyspareunia Condition: Stable Disposition: HOME, SELF-CARE Instructions: Pelvic Pain ([facility]) Additional Instructions: Follow up with your primary care provider in one to 2 days. Return to the emergency room immediately if symptoms worsen or any additional concerns. Prescriptions: Hydrocodone/Acetaminophen [Hydrocodon-Acetaminophen 5-325] 1 each PO Q6 #7 tablet Referrals: VALARIE GENAO MD [Primary Care Provider] - Follow up as needed
[2018-08-04 02:30] LABS: ABSOLUTE BASOPHILS # (AUTO) 0.1 10^3/uL (0.0-0.2); ABSOLUTE EOSINOPHILS # (AUTO) 0.2 10^3/uL (0.0-0.6); ABSOLUTE LYMPHOCYTES (AUTO) 2.9 10^3/uL (0.5-4.7); ABSOLUTE MONOCYTES (AUTO) 0.7 10^3/uL (0.1-1.4); ABSOLUTE NEUT (AUTO) 5.9 10^3/uL (1.7-8.2); BASOPHILS % (AUTO) 0.8 % (0-2); EOSINOPHILS % (AUTO) 1.9 % (0-6); HEMATOCRIT 37.6 % (36.0-47.0); HEMOGLOBIN 12.4 g/dL (12.0-15.5); LYMPHOCYTES % (AUTO) 29.7 % (13-45); MEAN CORPUSCULAR VOLUME 88 fl (80-97); MONOCYTES % (AUTO) 7.4 % (3-13); PLATELET COUNT 264 10^3/uL (150-450); RED BLOOD COUNT 4.28 10^6/uL (3.72-5.28); RED CELL DISTRIBUTION WIDTH 12.4 % (11.5-14.0); SEGMENTED NEUTROPHILS % (AUTO) 60.2 % (42-78); TOTAL CELLS COUNTED % (AUTO) 100 %; WHITE BLOOD COUNT 9.8 10^3/uL (4.0-10.5)
[2018-08-04 02:39] LABS: APPEARANCE,URINE CLEAR; BILIRUBIN,URINE NEGATIVE (NEGATIVE); COLOR,URINE STRAW; GLUCOSE, URINE NEGATIVE (NEGATIVE); KETONES,URINE NEGATIVE (NEGATIVE); LEUKOCYTE ESTERASE,URINE NEGATIVE (NEGATIVE); NITRITE,URINE NEGATIVE (NEGATIVE); PROTEIN,URINE NEGATIVE (NEGATIVE); UROBILINOGEN,URINE NEGATIVE mg/dL (<2.0)
[2018-08-04 02:44] LABS: ALANINE AMINOTRANSFERASE 25 U/L (9-52); ALBUMIN 4.3 g/dL (3.5-5.0); ALKALINE PHOSPHATASE 64 U/L (38-126); ANION GAP 11 (5-19); ASPARTATE AMINO TRANSFERASE 18 U/L (14-36); BILIRUBIN,DIRECT 0.1 mg/dL (0.0-0.4); BILIRUBIN,TOTAL 0.4 mg/dL (0.2-1.3); BLOOD UREA NITROGEN 8 mg/dL (7-20); CALCIUM 9.3 mg/dL (8.4-10.2); CARBON DIOXIDE 25 mmol/L (22-30); CHLORIDE 104 mmol/L (98-107); GLUCOSE 87 mg/dL (75-110); LIPASE 69.5 U/L (23-300); POTASSIUM 4.1 mmol/L (3.6-5.0); SODIUM 139.5 mmol/L (137-145)
--- NOTE | 2018-08-04 04:42 | RADIOLOGY REPORT (SQ) ---
EXAM DESCRIPTION: US TRANSVAGINAL COMPLETED DATE/TME: 08/04/2018 02:41 CLINICAL HISTORY: 23 years, Female, pelvic pain COMPARISON: None. TECHNIQUE: Complete pelvic ultrasound with transvaginal imaging. FINDINGS: Uterus measures 7.9 x 3.8 x 4.5 cm. The endometrium measures 0.6 cm. Cervical length measures 3.2 cm. Nabothian cysts identified. The right ovary measures 2.7 x 1.0 x 1.2 cm. The left ovary measures 2.4 x 3.4 x 2.8 cm. No free pelvic fluid. Limited color and spectral Doppler imaging of the ovaries demonstrates flow bilaterally. IMPRESSION: 1. No acute abnormalities of the pelvis identified. 2011 [facility] [employer]- All Rights Reserved
--- NOTE | 2018-08-04 05:26 | RADIOLOGY REPORT (SQ) ---
CLINICAL DATA: 23-year-old female with lower abdominal pain. TECHNICAL DATA: Axial CT imaging of the abdomen and pelvis was performed following the administration of intravenous contrast.. Sagittal and coronal reconstructed images were then performed. The CT study is performed according to ALARA (as low as reasonably achievable) or ALARA/IMAGE GENTLY, with automatic adjustment of mA and/or kV according to patient size. Comparison: None FINDINGS: Lung bases: The lung bases are clear. Liver:The liver is normal in size and configuration. No focal hepatic abnormalities are identified. Liver attenuation is within normal limits. Spleen:The spleen is normal is size, configuration and attenuation. Gallbladder and bile duct: The gallbladder is well distended and unremarkable. There is no biliary ductal dilatation. Pancreas: The pancreas is grossly normal in size and configuration. Adrenal Glands:The adrenal glands are normal in size and configuration. Kidneys:The kidneys are normal in size and configuration. There is no evidence of hydronephrosis. There is no evidence of nephrolithiasis. No definite solid or cystic renal mass lesions are identified. Stomach:The stomach is grossly normal. There is no definite hiatal hernia. Bowel:The bowel gas pattern is non specific and non obstructive. Appendix: The appendix is normal. Free air:There is no evidence of free air. Free fluid: There is no evidence of free fluid. Vasculature: The aorta is normal in caliber and contour. The inferior vena cava is grossly unremarkable. Lymphadenopathy: No pathologic lymphadenopathy is identified. Bladder: The bladder is well distended and smooth in contour. Reproductive: The uterus is grossly within normal limits. Bones: No acute osseous abnormalities are identified. Soft tissues: No focal soft tissue abnormalities are identified. IMPRESSION: No evidence of acute intra-abdominal or intrapelvic pathology.
[2018-08-04 05:42] VITALS: BP 113/71
== END 2018-08-04 05:42 | disposition home or self-care (01) ==
LOC: ER 01:39
DX: N94.10 Unspecified dyspareunia (principal); R10.9 Unspecified abdominal pain; R10.2 Pelvic and perineal pain
CPT/HCPCS: 99284; 96361; 96374; 36415; 83690; 85025; 81025; 80053; 81001; 76830; 93976; 74177; J2270; J7030

== ENCOUNTER 2019-01-31 15:59 | Emergency (ER) | payer MEDICAID ==
--- NOTE | 2019-01-31 17:05 | ER Document Report ---
ED Medical Screen (RME) - General Chief Complaint: Abdominal Pain Stated Complaint: ABDOMINAL PAIN Time Seen by Provider: 01/31/19 16:53 Primary Care Provider: VALARIE GENAO MD [Primary Care Provider] - Follow up as needed Mode of Arrival: Ambulatory Information source: Patient TRAVEL OUTSIDE OF THE [place] IN LAST 30 DAYS: No - HPI Notes: 01/31/19 17:10 23-year-old female presents to ED for evaluation of right lower quadrant abdominal pain with nausea and vomiting that started last night, states that pain is sharp, comes and goes. Denies any prior history of abdominal issues. states last bowel movement was yesterday. Worsened with time, nothing makes it better. Denies any fevers or chills. Patient reports she does still have her appendix and gallbladder. Denies worse after eating. Last menstrual period was January 09, 2019. Denies fevers, chills, chest pain,palpitations, shortness of breath, dyspnea, nausea, vomiting, diarrhea, abdominal pain, hematuria,b LH, dizziness, syncope, headaches, wheezing, ST, URI, neck pain, weakness, bowel or bladder dysfunction, saddle anesthesia or rashes. exam: RLQ abd tenderness with rebound, right CVA tenderness. s1s2 regular, lungs CTA Will obtain labs, give IV fluids with antiemetic and diagnostic imaging. Patient will have further assessment with me inside ED provider. She is agreeable with this plan of care. I have greeted and performed a rapid initial assessment of this patient. A comprehensive ED assessment and evaluation of the patient, analysis of test results and completion of medical decision making process will be conducted by an additional ED providers. - Related Data Allergies/Adverse Reactions: No Known Drug Allergies Allergy (Verified 01/31/19 16:49) blueberries Adverse Reaction (Uncoded 01/31/19 16:49) Past Medical History - Social History Frequency of alcohol use: Social Drug Abuse: None - Past Medical History Cardiac Medical History: Denies: Hx Coronary Artery Disease, Hx Heart Attack, Hx Hypertension Pulmonary Medical History: Denies: Hx Asthma, Hx Bronchitis, Hx COPD, Hx Pneumonia Neurological Medical History: Denies: Hx Cerebrovascular Accident, Hx Seizures Renal/ Medical History: Reports: Hx Ovarian Cysts. Denies: Hx Peritoneal Dialysis Musculoskeltal Medical History: Denies Hx Arthritis Past Surgical History: Reports: Hx Orthopedic Surgery - right knee - Immunizations Immunizations up to date: Yes Hx Diphtheria, Pertussis, Tetanus Vaccination: Yes History of Influenza Vaccine for 07/2017 - 12/2017 Season: No Physical Exam - Vital signs Vitals: Temp Pulse Resp BP Pulse Ox 98.5 F 89 18 133/84 H 100 01/31/19 16:22 01/31/19 16:22 01/31/19 16:22 01/31/19 16:22 01/31/19 16:22 Course - Vital Signs Vital signs: Temp Pulse Resp BP Pulse Ox 98.5 F 89 18 133/84 H 100 01/31/19 16:22 01/31/19 16:22 01/31/19 16:22 01/31/19 16:22 01/31/19 16:22 Doctor's Discharge - Discharge Referrals: VALARIE GENAO MD [Primary Care Provider] - Follow up as needed
[2019-01-31] MEDS ORDERED: ONDANSETRON HCL INJ/PF 4 MG/2 ML SDV IV ONE (17:06)
[2019-01-31] MEDS ORDERED: NORMAL SALINE 1000 ML 1,000 ML IV ONE (17:06)
[2019-01-31] MEDS ORDERED: MORPHINE SULFATE 10 MG/ML INJ IV ONE ×2 (17:10→21:54)
[2019-01-31 17:49] LABS: ABSOLUTE EOSINOPHILS # (AUTO) 0.1 10^3/uL (0.0-0.6); ABSOLUTE LYMPHOCYTES (AUTO) 2.3 10^3/uL (0.5-4.7); ABSOLUTE MONOCYTES (AUTO) 0.6 10^3/uL (0.1-1.4); ABSOLUTE NEUT (AUTO) 5.5 10^3/uL (1.7-8.2); BASOPHILS % (AUTO) 0.6 % (0-2); EOSINOPHILS % (AUTO) 1.1 % (0-6); HEMOGLOBIN 13.5 g/dL (12.0-15.5); LYMPHOCYTES % (AUTO) 26.6 % (13-45); MEAN CORPUSCULAR HEMOGLOBIN 28.7 pg (27.0-33.4); MEAN CORPUSCULAR HGB CONC 33.1 g/dL (32.0-36.0); MEAN CORPUSCULAR VOLUME 87 fl (80-97); MONOCYTES % (AUTO) 7.1 % (3-13); PLATELET COUNT 266 10^3/uL (150-450); RED BLOOD COUNT 4.72 10^6/uL (3.72-5.28); RED CELL DISTRIBUTION WIDTH 13.2 % (11.5-14.0); SEGMENTED NEUTROPHILS % (AUTO) 64.6 % (42-78); TOTAL CELLS COUNTED % (AUTO) 100 %; WHITE BLOOD COUNT 8.5 10^3/uL (4.0-10.5)
[2019-01-31 18:05] LABS: APPEARANCE,URINE CLOUDY; BILIRUBIN,URINE NEGATIVE (NEGATIVE); COLOR,URINE YELLOW; GLUCOSE, URINE NEGATIVE (NEGATIVE); KETONES,URINE TRACE mg/dL (NEGATIVE); LEUKOCYTE ESTERASE,URINE NEGATIVE (NEGATIVE); NITRITE,URINE NEGATIVE (NEGATIVE); PROTEIN,URINE NEGATIVE (NEGATIVE); UROBILINOGEN,URINE NEGATIVE mg/dL (<2.0)
[2019-01-31 18:10] LABS: ALANINE AMINOTRANSFERASE 23 U/L (9-52); ALBUMIN 4.8 g/dL (3.5-5.0); ALKALINE PHOSPHATASE 59 U/L (38-126); ANION GAP 10 (5-19); ASPARTATE AMINO TRANSFERASE 18 U/L (14-36); BILIRUBIN,DIRECT 0.3 mg/dL (0.0-0.4); BLOOD UREA NITROGEN 13 mg/dL (7-20); CALCIUM 10.2 mg/dL (8.4-10.2); CARBON DIOXIDE 24 mmol/L (22-30); CHLORIDE 103 mmol/L (98-107); GLUCOSE 76 mg/dL (75-110); LIPASE 43.4 U/L (23-300); POTASSIUM 4.1 mmol/L (3.6-5.0); SODIUM 137.2 mmol/L (137-145); TOTAL PROTEIN 7.8 g/dL (6.3-8.2)
--- NOTE | 2019-02-01 00:09 | RADIOLOGY REPORT (SQ) ---
EXAM DESCRIPTION: CT ABDOMEN PELVIS WITH IV CONTRAST COMPLETED DATE/TME: 01/31/2019 17:09 CLINICAL HISTORY: 23 years, Female, RLQ abd pain with n/v COMPARISON: 08/04/2018 CT TECHNIQUE: 604 Images stored on PACS. All CT scanners at this facility use dose modulation, iterative reconstruction, and/or weight based dosing when appropriate to reduce radiation dose to as low as reasonably achievable (ALARA). [facility]: Dose Right [facility]: CareDose [facility]: Dose Right [facility]: Teradose 4D [facility]: [employer] LIMITATIONS: None. FINDINGS: Limited evaluation of the lung bases is unremarkable. Osseous structures are grossly intact. The liver, spleen, adrenal glands, pancreas, kidneys are unremarkable. The gallbladder is present. Abundant stool in the colon. Normal appendix. No gross evidence for bowel obstruction. Trace of free fluid in the pelvis which is likely physiologic. IMPRESSION: Abundant stool in the colon. Trace of free fluid which is likely physiologic. TECHNICAL DOCUMENTATION: Quality ID # [id number]: Final reports with documentation of one or more dose reduction techniques (e.g., Automated exposure control, adjustment of the mA and/or kV according to patient size, use of iterative reconstruction technique) copyright 2010 [employer]- All Rights Reserved
[2019-02-01 00:26] VITALS: BP 128/71
[2019-02-01] MEDS ORDERED: MAGNESIUM CITRATE 296 ML BOTTLE PO ONE (00:47)
[2019-02-01] MEDS ORDERED: NA PHOS,M-B/NA PHOS,DI-BA (ADULT) 133 ML ENEMA PR ONE (00:48)
[2019-02-01] MEDS ORDERED: ONDANSETRON ODT 4 MG TAB (6 TAB/ER DISP) PO PRN (00:49)
--- NOTE | 2019-02-01 00:50 | ER Document Report ---
ED General - General Chief Complaint: Abdominal Pain Stated Complaint: ABDOMINAL PAIN Time Seen by Provider: 01/31/19 16:53 Primary Care Provider: VALARIE GENAO MD [ACTIVE STAFF] - Follow up as needed Mode of Arrival: Ambulatory Information source: Patient, [facility] Records Notes: 23-year-old female presents to ED for evaluation of right lower quadrant abdominal pain with nausea and vomiting that started last night, states that pain is sharp, comes and goes. Denies any prior history of abdominal issues. states last bowel movement was yesterday. Worsened with time, nothing makes it better. Denies any fevers or chills. Patient reports she does still have her a ppendix and gallbladder. Denies worse after eating. Last menstrual period was January 09, 2019. Denies fevers, chills, chest pain,palpitations, shortness of breath, dyspnea, nausea, vomiting, diarrhea, abdominal pain, hematuria,b LH, dizziness, syncope, headaches, wheezing, ST, URI, neck pain, weakness, bowel or bladder dysfunction, saddle anesthesia or rashes. TRAVEL OUTSIDE OF THE [place] IN LAST 30 DAYS: No - HPI Onset: Yesterday Onset/Duration: Persistent Quality of pain: Stabbing, Throbbing Severity: Moderate Associated symptoms: Nausea. denies: Chest pain, Nonproductive cough, Productive cough, Fever, Vomiting, Shortness of breath Exacerbated by: Denies Relieved by: Denies Similar symptoms previously: Yes Recently seen / treated by doctor: Yes - Related Data Allergies/Adverse Reactions: No Known Drug Allergies Allergy (Verified 01/31/19 16:49) blueberries Adverse Reaction (Uncoded 01/31/19 16:49) Past Medical History - General Information source: Patient - Social History Smoking Status: Current Every Day Smoker Cigarette use (# per day): Yes - 15 Smoking Education Provided: Yes - Smoking cessation counseling was provided for 4 minutes at the bedside Frequency of alcohol use: Social Drug Abuse: None Lives with: Spouse/Significant other Family History: None Patient has suicidal ideation: No Patient has homicidal ideation: No - Past Medical History Cardiac Medical History: Denies: Hx Coronary Artery Disease, Hx Heart Attack, Hx Hypertension Pulmonary Medical History: Denies: Hx Asthma, Hx Bronchitis, Hx COPD, Hx Pneumonia Neurological Medical History: Denies: Hx Cerebrovascular Accident, Hx Seizures Renal/ Medical History: Reports: Hx Ovarian Cysts. Denies: Hx Peritoneal Dialysis Musculoskeletal Medical History: Denies Hx Arthritis Past Surgical History: Reports: Hx Orthopedic Surgery - right knee - Immunizations Immunizations up to date: Yes Hx Diphtheria, Pertussis, Tetanus Vaccination: Yes Review of Systems - Review of Systems Notes: REVIEW OF SYSTEMS: CONSTITUTIONAL : Denies fever, chills, or sweats. Denies recent illness. Denies weight loss, recent hospitalizations. EENT: Denies visual changes, eye pain. Denies sore throat, oral lesions, difficulty swallowing. CARDIOVASCULAR: Denies chest pain. Denies palpitations. Denies lower extremity edema. RESPIRATORY: Denies cough. Denies shortness of breath, wheezing. GASTROINTESTINAL: Denies abdominal distention. Denies vomiting, or diarrhea. Denies blood in vomitus, stools, or per rectum. Denies black, tarry stools. Denies constipation. GENITOURINARY: Denies difficulty urinating, painful urination, frequency, blood in urine, or vaginal discharge. MUSCULOSKELETAL: Denies back or neck pain or stiffness. Denies joint pain or swelling. SKIN: Denies rash, lesions or sores. HEMATOLOGIC : Denies easy bruising or bleeding. LYMPHATIC: Denies swollen glands. NEUROLOGICAL: Denies confusion or altered mental status. Denies loss of consciousness. Denies dizziness or lightheadedness. Denies headache. Denies weakness or paralysis. Denies problems difficulty with ambulation, slurred speech. Denies sensory loss, numbness, or tingling. Denies seizures. PSYCHIATRIC: Denies anxiety or stress. Denies depression, suicidal ideation, or homicidal ideation. Denies visual or auditory hallucinations. Physical Exam - Vital signs Vitals: Temp Pulse Resp BP Pulse Ox 98.5 F 89 18 133/84 H 100 01/31/19 16:22 01/31/19 16:22 01/31/19 16:22 01/31/19 16:22 01/31/19 16:22 - Notes Notes: PHYSICAL EXAMINATION: GENERAL: Well-appearing, well-nourished and in no acute distress. HEAD: Atraumatic, normocephalic. EYES: Pupils equal round and reactive to light, extraocular movements intact, conjunctiva are normal. ENT: Nares patent, oropharynx clear without exudates. Moist mucous membranes. NECK: Normal range of motion, supple without lymphadenopathy LUNGS: Breath sounds clear to auscultation bilaterally and equal. No wheezes rales or rhonchi. HEART: Regular rate and rhythm without murmurs ABDOMEN: Tenderness with palpation to the right lower quadrant and epigastric region. No guarding, no rebound. No masses appreciated. Female : deferred Musculoskeletal: Normal range of motion, no pitting or edema. No cyanosis. NEUROLOGICAL: Cranial nerves grossly intact. Normal speech, normal gait. Normal sensory, motor exams PSYCH: Normal mood, normal affect. SKIN: Warm, Dry, normal turgor, no rashes or lesions noted. Course - Re-evaluation Re-evalutation: 02/01/19 00:52 Laboratory 01/31/19 01/31/19 01/31/19 17:00 17:00 17:25 WBC 8.5 RBC 4.72 Hgb 13.5 Hct 41.0 MCV 87 MCH 28.7 MCHC 33.1 RDW 13.2 Plt Count 266 Seg Neutrophils % 64.6 Lymphocytes % 26.6 Monocytes % 7.1 Eosinophils % 1.1 Basophils % 0.6 Absolute Neutrophils 5.5 Absolute Lymphocytes 2.3 Absolute Monocytes 0.6 Absolute Eosinophils 0.1 Absolute Basophils 0.0 Sodium 137.2 Potassium 4.1 Chloride 103 Carbon Dioxide 24 Anion Gap 10 BUN 13 Creatinine 0.63 Est GFR ( Amer) > 60 Est GFR (Non-Af Amer) > 60 Glucose 76 Calcium 10.2 Total Bilirubin 1.0 Direct Bilirubin 0.3 Neonat Total Bilirubin Not Reportable Neonat Direct Bilirubin Not Reportable Neonat Indirect Bili Not Reportable AST 18 ALT 23 Alkaline Phosphatase 59 Total Protein 7.8 Albumin 4.8 Lipase 43.4 Serum HCG, Qual NEGATIVE Urine Color Urine Appearance Urine pH Ur Specific [place] Urine Protein Urine Glucose (UA) Urine Ketones Urine Blood Urine Nitrite Urine Bilirubin Urine Urobilinogen Ur Leukocyte Esterase Urine WBC (Auto) Urine RBC (Auto) Squamous Epi Cells Auto Urine Mucus (Auto) Urine Ascorbic Acid 01/31/19 17:25 WBC RBC Hgb Hct MCV MCH MCHC RDW Plt Count Seg Neutrophils % Lymphocytes % Monocytes % Eosinophils % Basophils % Absolute Neutrophils Absolute Lymphocytes Absolute Monocytes Absolute Eosinophils Absolute Basophils Sodium Potassium Chloride Carbon Dioxide Anion Gap BUN Creatinine Est GFR ( Amer) Est GFR (Non-Af Amer) Glucose Calcium Total Bilirubin Direct Bilirubin Neonat Total Bilirubin Neonat Direct Bilirubin Neonat Indirect Bili AST ALT Alkaline Phosphatase Total Protein Albumin Lipase Serum HCG, Qual Urine Color YELLOW Urine Appearance CLOUDY Urine pH 5.0 Ur Specific [place] 1.030 Urine Protein NEGATIVE Urine Glucose (UA) NEGATIVE Urine Ketones TRACE H Urine Blood NEGATIVE Urine Nitrite NEGATIVE Urine Bilirubin NEGATIVE Urine Urobilinogen NEGATIVE Ur Leukocyte Esterase NEGATIVE Urine WBC (Auto) 1 Urine RBC (Auto) 2 Squamous Epi Cells Auto 26 Urine Mucus (Auto) MANY Urine Ascorbic Acid NEGATIVE Abdomen/Pelvis CT 01/31/19 17:09 IMPRESSION: Abundant stool in the colon. Trace of free fluid which is likely physiologic. TECHNICAL DOCUMENTATION: Quality ID # [id number]: Final reports with documentation of one or more dose reduction techniques (e.g., Automated exposure control, adjustment of the mA and/or kV according to patient size, use of iterative reconstruction technique) copyright 2011 [employer]- All Rights Reserved Temp Pulse Resp BP Pulse Ox 98.8 F 63 16 128/71 H 100 02/01/19 00:21 02/01/19 00:21 02/01/19 00:21 02/01/19 00:21 02/01/19 00:21 02/01/19 03:08 23-year-old female presents to ED for evaluation of right lower quadrant abdominal pain with nausea and vomiting that started last night, states that pain is sharp, comes and goes. Denies any prior history of abdominal issues. states last bowel movement was yesterday. Vital signs reviewed upon arrival. Patient does not appear toxic or dehydrated. She is in no acute distress. Patient has mild epigastric abdominal tenderness with palpation. CBC, CMP, lipase, urinalysis are unremarkable. CT of the abdomen and pelvis ordered by the provider in triage showed an abundant amount of stool in the colon. Patient prefers to do enema and mag citrate at home. No evidence of obstruction, jayro endicitis, urolithiasis. Patient was evaluated and treated as appropriate for the patient's presenting symptoms and complaint, with consideration of any critical or life threatening conditions that may be associated with their obtained history and exam as noted above. All results were discussed with patient and her family members who are at the bedside. patient provided the opportunity to ask questions, and express concerns. Patient was educated on treatments based on their presumed diagnosis as noted above. At this time we will discharge the patient with return precautions and follow-up recommendations. Verbal discharge instructions given a the bedside. Medication warnings reviewed. Patient is in agreement with this plan and has verbalized understanding of return precautions. After careful consideration I feel that that patient can be safely discharged from the emergency department, they were advised to followup with a primary care physician in 2-3 days. Dictation on this chart was performed using voice recognition software and may result in unintended grammatical, spelling, syntax or errors. - Vital Signs Vital signs: Temp Pulse Resp BP Pulse Ox 98.8 F 63 16 128/71 H 100 02/01/19 00:21 02/01/19 00:21 02/01/19 00:21 02/01/19 00:21 02/01/19 00:21 - Laboratory Result Diagrams: 01/31/19 17:25 01/31/19 17:00 Laboratory results interpreted by me: 01/31/19 17:25 Urine Ketones TRACE H - Diagnostic Test Radiology reviewed: Image reviewed, Reports reviewed Discharge - Discharge Clinical Impression: Abdominal pain Qualifiers: Abdominal location: generalized Qualified Code(s): R10.84 - Generalized abdominal pain Constipation Qualifiers: Constipation type: unspecified constipation type Qualified Code(s): K59.00 - Constipation, unspecified Condition: Good Disposition: HOME, SELF-CARE Instructions: Abdominal Pain ([facility]), Constipation ([facility]) Prescriptions: Polyethylene Glycol 3350 [Miralax Powder 17 gm/Packet] 1 packet PO DAILY #10 pkg Forms: Elevated Blood Pressure Referrals: VALARIE GENAO MD [ACTIVE STAFF] - Follow up as needed
== END 2019-02-01 01:05 | disposition home or self-care (01) ==
LOC: ER 15:59
DX: K59.00 Constipation, unspecified (principal); R10.84 Generalized abdominal pain; R10.813 Right lower quadrant abdominal tenderness; R10.816 Epigastric abdominal tenderness; R11.2 Nausea with vomiting, unspecified; F17.210 Nicotine dependence, cigarettes, uncomplicated; Z71.6 Tobacco abuse counseling; Z91.018 Allergy to other foods; Z87.42 Personal history of other diseases of the female genital tract
CPT/HCPCS: 96376; 99406; 99284; 96361; 96374; 96375; 36415; 83690; 84703; 85025; 80053; 81001; 74177; J3490 ×2; J2270; J2405; J7030

== ENCOUNTER 2020-01-14 22:30 | Emergency (ER) | payer SELFPAY ==
[2020-01-14] MEDS ORDERED: PREDNISONE 20 MG TABLET PO ONE (23:46)
[2020-01-14] MEDS ORDERED: GUAIFENESIN/CODEINE PHOS 100-10 MG/ 5 ML UDC PO ONE (23:46)
[2020-01-15] MEDS ORDERED: HYDROCODONE/ACETAMINOPHEN 5-325 MG TABLET PO ONE (00:03)
--- NOTE | 2020-01-15 00:23 | RADIOLOGY REPORT (SQ) ---
CLINICAL INDICATION: cough/shortness of breath. TECHNIQUE: A single portable AP view was obtained of the chest at 0006 hours. COMPARISON: July 16, 2016. FINDINGS: The cardiomediastinal silhouette is normal. The lungs are grossly clear. No evidence of effusion or pneumothorax. The visualized bones are unremarkable. IMPRESSION: No evidence of active intrathoracic disease.
--- NOTE | 2020-01-15 01:16 | ER Document Report ---
HPI - HPI Time Seen by Provider: 01/14/20 22:40 Pain Level: 2 Notes: Otherwise healthy 24-year-old female presenting to the emergency department chief complaint of nausea, mucus in her throat that she is unable to cough up and difficulty taking a deep breath due to the irritation in her throat. She denies any sore throat. Patient also reports a headache. She denies any fever, nausea, vomiting or chills. She denies any shortness of breath or exposure to any COVID-19 patients and also denies any recent travel. - REPRODUCTIVE LMP: 3 wk ago Reproductive: DENIES: : Past Medical History - General Information source: Patient - Social History Smoking Status: Current Every Day Smoker Family History: None Patient has suicidal ideation: No Patient has homicidal ideation: No - Past Medical History Cardiac Medical History: Denies: Hx Coronary Artery Disease, Hx Heart Attack, Hx Hypertension Pulmonary Medical History: Denies: Hx Asthma, Hx Bronchitis, Hx COPD, Hx Pneumonia Neurological Medical History: Denies: Hx Cerebrovascular Accident, Hx Seizures Renal/ Medical History: Reports: Hx Ovarian Cysts. Denies: Hx Peritoneal Dialysis Musculoskeletal Medical History: Denies Hx Arthritis Past Surgical History: Reports: Hx Orthopedic Surgery - right knee - Immunizations Immunizations up to date: Yes Hx Diphtheria, Pertussis, Tetanus Vaccination: Yes Vertical Provider Document - CONSTITUTIONAL Notes: PHYSICAL EXAMINATION: GENERAL: Well-appearing, well-nourished and in no acute distress. HEAD: Atraumatic, normocephalic. EYES: Pupils equal round and reactive to light, extraocular movements intact, conjunctiva are normal. ENT: Nares patent, oropharynx clear without exudates. Moist mucous membranes. NECK: Normal range of motion, supple without lymphadenopathy LUNGS: Breath sounds clear to auscultation bilaterally and equal. No wheezes rales or rhonchi. HEART: Regular rate and rhythm without murmurs ABDOMEN: Soft, nontender, nondistended abdomen. No guarding, no rebound. No masses appreciated. Female : deferred Musculoskeletal: Normal range of motion, no pitting or edema. No cyanosis. NEUROLOGICAL: Cranial nerves grossly intact. Normal speech, normal gait. Normal sensory, motor exams PSYCH: Normal mood, normal affect. SKIN: Warm, Dry, normal turgor, no rashes or lesions noted. - INFECTION CONTROL TRAVEL OUTSIDE OF THE [place] IN LAST 30 DAYS: No Course - Re-evaluation Re-evalutation: Patient appears well, nontoxic, chest x-ray is unremarkable. Patient given medications here in the emergency department to help with her symptoms. She has not had fever so I feel it is unlikely that she has COVID-19. She will be started on medications for her symptoms and discharged home at this time. Patient is in agreements with this plan. - Vital Signs Vital signs: Temp Pulse Resp BP Pulse Ox 98.5 F 80 18 128/79 H 98 01/14/20 22:31 01/14/20 22:31 01/14/20 22:31 01/14/20 22:31 01/14/20 22:31 Discharge - Discharge Clinical Impression: URI (upper respiratory infection) Qualifiers: URI type: unspecified viral URI Qualified Code(s): J06.9 - Acute upper respiratory infection, unspecified Condition: Stable Disposition: HOME, SELF-CARE Instructions: Upper Respiratory Illness ([facility]) Additional Instructions: Your work-up today was reassuring. Your vital signs were within normal limits. Your chest x-ray did not show any acute findings such as pneumonia. Please take the medications that I have prescribed as directed. Drink plenty of fluids. Get plenty of rest. Tylenol or ibuprofen for any aches or pains. Follow-up with your primary care provider in 3 to 5 days. Return to the emergency department with any new or life-threatening complaints. Prescriptions: Benzonatate [Tessalon Perles 100 mg Capsule] 1 - 2 tab PO Q8HP PRN #30 capsule PRN Reason: Prednisone [Deltasone 20 mg Tablet] 3 tab PO DAILY 5 Days #15 tablet Ondansetron [Zofran Odt 4 mg Tablet] 1 - 2 tab PO Q4H PRN #15 tab.rapdis PRN Reason: For Nausea/Vomiting
[2020-01-15 01:26] VITALS: BP 112/72
== END 2020-01-15 01:40 | disposition home or self-care (01) ==
LOC: ER 22:30
DX: J06.9 Acute upper respiratory infection, unspecified (principal); B97.89 Other viral agents as the cause of diseases classified elsewhere; R51 Headache; F17.200 Nicotine dependence, unspecified, uncomplicated
CPT/HCPCS: 99283; 71045; J7512

== ENCOUNTER 2020-03-12 15:30 | Emergency (ER) | payer SELFPAY ==
[2020-03-12 15:36] VITALS: BP 127/88
--- NOTE | 2020-03-12 16:07 | ER Document Report ---
HPI - HPI Patient complains to provider of: Decreased hearing to right ear Onset/Duration: Persistent Pain Level: Denies Context: Patient reports decreased hearing to right ear for the past 4 days. Patient denies any ear pain, fever or drainage. Patient is concerned that she may have a foreign body in her ear. Associated Symptoms: denies: Nonproductive cough, Fever Exacerbated by: Denies Relieved by: Denies Similar symptoms previously: No Recently seen / treated by doctor: No - ROS ROS below otherwise negative: Yes Systems Reviewed and Negative: Yes All other systems reviewed and negative - CONSTITUTIONAL Constitutional: DENIES: Fever - EENT Notes: Decreased hearing to right ear - RESPIRATORY Respiratory: DENIES: Coughing - GASTROINTESTINAL Gastrointestinal: DENIES: Patient vomiting - REPRODUCTIVE Reproductive: DENIES: : - DERM Skin Color: Normal Skin Problems: None Past Medical History - General Information source: Patient - Social History Smoking Status: Current Every Day Smoker Chew tobacco use (# tins/day): No Drug Abuse: None Occupation: Foodservice Family History: None Patient has homicidal ideation: No - Medical History Medical History: Negative Neurological Medical History: Denies: Hx Cerebrovascular Accident, Hx Seizures Renal/ Medical History: Reports: Hx Ovarian Cysts. Denies: Hx Peritoneal Dialysis Musculoskeletal Medical History: Denies Hx Arthritis Past Surgical History: Reports: Hx Orthopedic Surgery - right knee - Immunizations Immunizations up to date: Yes Hx Diphtheria, Pertussis, Tetanus Vaccination: Yes Vertical Provider Document - CONSTITUTIONAL Agree With Documented VS: Yes Exam Limitations: No Limitations General Appearance: WD/WN, No Apparent Distress - INFECTION CONTROL TRAVEL OUTSIDE OF THE [place] IN LAST 30 DAYS: No - HEENT HEENT: Atraumatic, Normocephalic Notes: Right ear cerumen impaction, left TM clear, no mastoid tenderness or swelling, no pain with movement of helix - NECK Neck: Normal Inspection, Supple - RESPIRATORY Respiratory: No Respiratory Distress - MUSCULOSKELETAL/EXTREMETIES Musculoskeletal/Extremeties: MAEW - NEURO Level of Consciousness: Awake, Alert, Appropriate - DERM Integumentary: Warm, Dry Course - Re-evaluation Re-evalutation: 03/12/20 16:40 attempted cerumen removal with curette, pt did not tolerate use of curette. Right TM was able to be visualized, no abnormalities noted to tympanic membrane. Offered patient continued irrigation to remove excessive cerumen, patient decl samir preferring to use [id number] ear irrigation kits at home. - Vital Signs Vital signs: Temp Pulse Resp BP Pulse Ox 98.0 F 105 H 16 127/88 H 99 03/12/20 15:54 03/12/20 15:35 03/12/20 15:35 03/12/20 15:35 03/12/20 15:35 Discharge - Discharge Clinical Impression: Impacted cerumen of right ear Condition: Stable Disposition: HOME, SELF-CARE Instructions: Cerumen Impaction ([facility]) Additional Instructions: Return immediately for any new or worsening symptoms Followup with your primary care provider, call tomorrow to make a followup appointment You may use [id number] ear irrigation kits as directed to help with excessive earwax buildup Referrals: [facility] [Provider Group] - Follow up as needed
== END 2020-03-12 16:50 | disposition home or self-care (01) ==
LOC: ER 15:30
DX: H61.21 Impacted cerumen, right ear (principal); F17.200 Nicotine dependence, unspecified, uncomplicated
CPT/HCPCS: 99283

== ENCOUNTER 2020-10-17 00:40 | Emergency (ER) | payer SELFPAY ==
[2020-10-17] MEDS ORDERED: KETOROLAC TROMETHAMINE 60 MG/2 ML SDV IM ONE (10:22)
[2020-10-17] MEDS ORDERED: OXYCODONE-ACETAMINOPHEN 5-325 MG TABLET PO ONE (10:23)
[2020-10-17] MEDS ORDERED: ONDANSETRON 4 MG TAB.RAPDIS PO ONE ×2 (10:23→12:51)
--- NOTE | 2020-10-17 10:28 | ER Document Report ---
ED General - General Chief Complaint: Breast Problem Stated Complaint: BOOB PAIN Time Seen by Provider: 10/17/20 10:01 TRAVEL OUTSIDE OF THE [place] IN LAST 30 DAYS: No - HPI Notes: Patient is a 25-year-old female presents emergency department for evaluation of right breast pain. She states she feels that there was a swelling in an area underneath her right areola, the swelling and pain got worse. She currently puts her pain at a 9 out of 10. Is worsened by touching. She has had no drainage. No fevers or chills. No nausea or vomiting. She denies any redness to the area, no injury to the area. She does not have a primary care provider. She does have a strong family history of breast cancer, has never had a mammogram. She has not noted any unintentional weight loss or night sweats. - Related Data Allergies/Adverse Reactions: No Known Drug Allergies Allergy (Verified 09/27/20 19:10) blueberries Adverse Reaction (Uncoded 03/12/20 15:54) Home Medications: none Past Medical History - General Information source: Patient - Social History Smoking Status: Former Smoker Chew tobacco use (# tins/day): No Frequency of alcohol use: Occasional Drug Abuse: None Family History: Malignancy - Breast cancer in mother, strong breast cancer family history - Past Medical History Cardiac Medical History: Denies: Hx Coronary Artery Disease, Hx Heart Attack, Hx Hypertension Pulmonary Medical History: Denies: Hx Asthma, Hx Bronchitis, Hx COPD, Hx Pneumonia Neurological Medical History: Denies: Hx Cerebrovascular Accident, Hx Seizures Renal/ Medical History: Reports: Hx Ovarian Cysts. Denies: Hx Peritoneal Dialysis Musculoskeletal Medical History: Denies Hx Arthritis Past Surgical History: Reports: Hx Orthopedic Surgery - right knee - Immunizations Immunizations up to date: Yes Hx Diphtheria, Pertussis, Tetanus Vaccination: Yes Physical Exam - Vital signs Vitals: Temp Pulse Resp BP Pulse Ox 97.9 F 84 22 H 121/73 100 10/17/20 00:51 10/17/20 00:51 10/17/20 00:51 10/17/20 00:51 10/17/20 00:51 - Notes Notes: This is a 25-year-old female who appears her stated age, in a mild amount of distress secondary to discomfort. Vital signs reviewed, please refer to chart. Head is normocephalic, atraumatic. Pupils equal round, reactive to light. Neck is supple without meningismus. Heart is regular rate and rhythm. Lungs are clear to auscultation bilaterally. Abdomen is soft, nontender, normoactive bowel sounds throughout. Extremities without cyanosis, clubbing. Posterior calves are nontender. Peripheral pulses are equal. Skin is warm and dry. Patient is awake, alert, neurological exam is nonfocal. Breast examination is performed with Kiran Miller RN, present in the room. I do not note any significant asymmetry to the breasts. No erythema or calor is noted. I do not appreciate any abnormal masses, only normal breast tissue to my palpation. She is markedly tender, however, throughout nearly the entire breast, to the point of tears. No discharge. No inverted nipples. Course - Re-evaluation Re-evalutation: 10/17/20 10:27 Patient presents to the emergency department for evaluation of breast pain. She is not lactating. She has no discharge. I do not see any skin changes. I did order an ultrasound, but I explained to the patient that ideally what she needs is an evaluation by primary care doctor for referral on for mammogram given her family history. She voiced understanding. The patient will be medicated, she is stable at this time. We will continue to monitor. 10/17/20 14:20 Patient is feeling improved. Her ultrasound failed to reveal any acute findings, but again it was discussed with the patient that she needs a mammogram for full evaluation. She voiced understanding. I will send her home with prescription strength anti-inflammatories. She does have Medicaid and a primary care provider. I also encouraged her to follow-up with the health department, they may be more helpful in obtaining a mammogram as well. She voiced understanding will be discharged. - Vital Signs Vital signs: Temp Pulse Resp BP Pulse Ox 97.8 F 56 L 18 110/70 100 10/17/20 12:56 10/17/20 12:56 10/17/20 06:57 10/17/20 12:56 10/17/20 12:56 - Laboratory Results Critical Laboratory Results Reviewed: No Critical Results - Radiology Results Radiology Results Interpreted: 10/17/20 14:20 Breast Ultrasound 10/17/20 10:23 IMPRESSION: No suspicious findings detected by ultrasound. Critical Radiology Results Reviewed: No Critical Results Discharge - Discharge Clinical Impression: Pain of right breast Condition: Stable Disposition: HOME, SELF-CARE Instructions: Breast Self-Examination ([facility]) Additional Instructions: No clear abnormality was identified on your exam nor on your ultrasound today. You need further evaluation with a mammogram. Please follow-up with primary care to obtain this soon as possible. If you develop worsening or new concerning symptoms of any sort, please return immediately to the emergency department for evaluation.
[2020-10-17] MEDS ORDERED: LIDOCAINE 1% INJ-PF (10 MG/ML) 30 ML SDV ONE (10:41)
[2020-10-17 12:59] VITALS: BP 110/70
--- NOTE | 2020-10-17 13:59 | RADIOLOGY REPORT (SQ) ---
EXAM DESCRIPTION: U/S BREAST UNILATERAL LIMITED IMAGES COMPLETED DATE/TIME: 10/17/2020 11:10 am REASON FOR STUDY: breast pain COMPARISON: None TECHNIQUE: Static and Realtime grayscale interrogation of focal area(s) of concern in the right christ[address] st(s) acquired. Selected color doppler/spectral images saved to PACS. LIMITATIONS: None. FINDINGS: Masses:No cystic or solid masses identified Architecture:No alteration of normal morphology. No skin thickening. No edema. Other: None. IMPRESSION: No suspicious findings detected by ultrasound. BIRAD: 1 Negative. RECOMMENDATION: RECOMMENDED FOLLOW-UP: Follow-up as clinically indicated. COMMENT: The [employer] ([employer]) has developed recommendations for screening MRI of the breasts in certain patient populations, to be used in conjunction with mammography. Breast MRI s urveillance may be appropriate for women with more than 20% lifetime risk of developing breast cancer as determined by genetic testing, significant family history of the disease, or history of mantle r adiation for Hodgkins Disease. [employer] Practice Guidelines 2008. TECHNICAL DOCUMENTATION: FINDING NUMBER: (1) ASSESSMENT: (1) JOB ID: [id number] 2010 [employer]- All Rights Reserved Reading location - IP/workstation name: [email or web address]
== END 2020-10-17 15:00 | disposition home or self-care (01) ==
LOC: ER 00:40
DX: N64.4 Mastodynia (principal); Z87.891 Personal history of nicotine dependence; Z80.3 Family history of malignant neoplasm of breast
CPT/HCPCS: 99285; 96372; 76642; J1885; S0119